=== PATIENT | male | born 1975 | race Caucasian/White ===

== ENCOUNTER 2024-03-23 14:27 | Emergency (ER) | payer OTHER ==
[2024-03-23] MEDS ORDERED: Lidocaine 1% (PF) 30 ML VIAL ONE (14:59)
== END 2024-03-23 15:39 | disposition home or self-care (01) ==
LOC: CSHERS 14:27
DX: H66.41 Suppurative otitis media, unspecified, right ear (principal); I10 Essential (primary) hypertension; E11.9 Type 2 diabetes mellitus without complications
CPT/HCPCS: 10060; J2001